=== PATIENT | male | born 1970 | race Two or more races ===

== ENCOUNTER 2016-08-14 21:24 | Inpatient (IN) | payer OTHER ==
--- NOTE | ~2016-08-14 | CR72 ---
[facility] A Service of [facility] RADIOLOGY TEXT RESULTS PATIENT: PRERNA REED LOCATION: CEDOF [address]-05 : [birth year] UNIT #: [id number] AGE: [address]: Venus Smith MD SEX: M ORDER DR: [id number] [facility] [address] [facility]. [place], [place] [address] [id number] MR#: [id number] Acc #: [id number] NAME: PRERNA REED : 1970 SEX: M STUDY DATE/TIME: 08/14/2016 21:46 UNIT: [facility] ROOM: STUDY DESCRIPTION: CR Chest Single View Portable Attending Physician: Luciano Hart M.D. Ordering Physician: Luciano Hart M.D. Primary Care Physician: Primary Care Physician No MEDICAL IMAGING REPORT This report is preliminary unless electronic signature is present EXAM Portable chest HISTORY Syncope, seizure and headache today. Comparison study 03/14/2015. FINDINGS A portable view of the chest was obtained. The heart size and vascularity are normal, the lungs are clear and the bones are unremarkable. IMPRESSION No active disease. Dictated by... Eleazar Carranza M.D. THIS IS AN ELECTRONICALLY VERIFIED REPORT Eleazar Carranza M.D. at 08/15/2016 5:54 AM KEO/abhijeet TD: 08/15/2016 01:37 JOB #: [id number] MEDICAL IMAGING REPORT Page 1 of 1 COPY
--- NOTE | ~2016-08-14 | CO ---
Unit #: [id number] #: [id number] Patient: PRERNA REED [id number] [place], [place] [address] [id number] I MR#: [id number] NAME: PRERNA REED [facility] Age: 46 Sex: M Admission Date: 08/15/2016 : 1970 Attending Physician: Ratna Aguilar M.D. Primary Care Physician: No Primary Care Physician Consultation Date: 08/15/2016 CONSULTATION REPORT HISTORY OF PRESENT ILLNESS Mr. Gutierrez is a 46-year-old white male admitted to the intensive care unit at [facility]. We were asked to see him. No history is obtainable from the patient as he has been sedated and is undergoing alcohol withdrawal symptoms. According to the electronic medical record, he drinks a large bottle of vodka on a daily basis. His last drink was three days prior to admission. Apparently he ran out of money and was unable to buy alcohol. The day prior to admission he had two witnessed seizures at home and was brought to the emergency department, but apparently he ran back home. He had two further seizures and was brought to the emergency department late in the evening the night before admission. He was given 2 mg of Ativan and 1 g of Keppra and bolused with a liter of saline. He was given 50 mg of Librium. At that time he was confused, but less tremulous. Apparently in the emergency room his ex- was with him. He does have some history of seizure activity versus alcohol withdrawal seizures. EEG performed this year was read as essentially normal. He has been prescribed Keppra, but does not take it. PAST MEDICAL HISTORY 1. Alcohol withdrawal. 2. Seizures. 3. History of lower GI bleeding. Colonoscopy normal except for medium sized hemorrhoids which were banded. SOCIAL HISTORY The patient lives with his ex- and family. Drinks a fifth of vodka on a daily basis. No smoking. No illicit drugs. FAMILY HISTORY Apparently negative for seizures. ALLERGIES No known drug allergies. HOME MEDICATIONS None. REVIEW OF SYSTEMS Not possible. The patient is sedated. PHYSICAL EXAMINATION GENERAL: male, sedated. VITALS: Blood pressure 153/107, pulse 111, respiratory rate 18, afebrile. Unit #: [id number] #: [id number] Patient: PRERNA REED HEENT: Normocephalic, atraumatic. Pupils round and reactive. Somewhat mildly icteric. NECK: Supple. Trachea midline. No cervical or supraclavicular lymphadenopathy. LUNGS: Relatively clear bilaterally. HEART: Regular rate and rhythm. Could not appreciate murmur, rub or gallop. ABDOMEN: Nontender. Bowel sounds present. No hepatosplenomegaly. EXTREMITIES: Without clubbing, cyanosis or edema. NEUROLOGIC: Sedated. Does seem to move all extremities when stimulated. SKIN: Warm and dry. DIAGNOSTIC STUDIES IMAGING: Chest x-ray no acute infiltrate, mass or congestion. CT scan no acute abnormality. LABORATORY: BMP reviewed. Potassium 2.7, sodium 133, bilirubin 2.3, magnesium 1.7, AST 78. Coags normal. White blood cell count 8,400, hematocrit 30.5, platelets 85,000. Chem tox positive for tricyclic antidepressants. Urinalysis trace leukocyte esterase, 2+ protein, 5-10 red blood cells, 2-5 white blood cells. ASSESSMENT 1. Alcohol withdrawal. 2. Seizures versus ETOH withdrawal seizures. 3. Thrombocytopenia. 4. Hypokalemia. 5. Anemia. PLAN CIWA protocol. Multivitamins with thiamine. Further recommendations pending this. Dictated by... Yoel Harris M.D. NATALY/raffi TD: 08/15/2016 14:55 JOB #: [id number] CONSULTATION REPORT Page 1 of 1 X Yoel Harris MD X CONSULTATION REPORT
--- NOTE | ~2016-08-14 | DS ---
Unit #: [id number] #: [id number] Patient: PRERNA GARCIA [id number] [address] [address] [id number] I MR#: [id number] NAME: PRERNA GARCIA ROOM: [facility] Age: 46 Sex: M Admission Date: 08/15/2016 : 1970 Discharge Date: 08/18/2016 Attending Physician: Ratna Aguilar M.D. DISCHARGE SUMMARY PRINCIPAL DIAGNOSES 1. Acute delirium tremens. 2. Acute hypoxic respiratory failure secondary to #1, now status post extubation. 3. Alcohol withdrawal seizure. 4. Hyponatremia, resolved. 5. Hypokalemia, resolved. 6. Iron deficiency anemia. 7. Alcohol-induced thrombocytopenia with discharge platelet count of 140,000. 8. Questionable history of epilepsy noncompliant with antiepileptic medication. ANALYSIS TESTER Dr. Harris, Pulmonology. PROCEDURES 1. CT of the head without contrast on August 14, 2016, with ethmoid and right maxillary sinus disease. CT of the brain otherwise normal. 2. Multiple followup chest x-rays without evidence of pneumonia, both pre, intra, and post-extubation. CLINICAL HISTORY AND HOSPITAL COURSE Mr. Garcia is a 46-year-old male, Yi speaking only, who presented to the emergency department after several seizures three days after stopping alcohol. Please refer to History and Physical for further details. Patient was given Keppra, Ativan, and normal saline, and admitted to telemetry floor. The following morning, the patient was in significant alcohol withdrawal, i.e., he was tremulous, tachycardic, delirious, and trying to climb out the window. He was given several doses of Ativan without improvement and subsequently transferred to the ICU at which point he was given Haldol, Geodon, and Ativan simply to calm him down and subsequently required intubation. Dr. Harris was consulted. Patient was maintained on Precedex and subsequently extubated on August 17. Following extubation, patient has done well on low-dose Librium. He is having no signs of withdrawal currently, and he has not had any further seizures. He is now eating and has been walking in the room. All laboratory work has been normal. I am going to have him evaluated for outpatient treatment by [facility], and after that, he can be discharged home. I did stress to the patient via meat and seafood manager his need for alcohol cessation. Unit #: [id number] #: [id number] Patient: PRERNA GARCIA The patient does have a questionable history of epilepsy, and I am going to send him home on Keppra. However, I have a strong suspicion his seizures are primarily alcohol withdrawal and this particular hospitalization I do feel is alcohol withdrawal. DISCHARGE CONDITION Stable. DISCHARGE STATUS Discharge to home. DISCHARGE MEDICATIONS 1. Keppra 500 mg p.o. b.i.d., 2 month prescription given. 2. Librium 25 mg 1 tablet twice daily for 1 day, then 1 tablet daily, then discontinue. DISCHARGE INSTRUCTIONS 1. Patient is instructed to follow a regular diet. 2. He can increase his activity as tolerated. 3. He is to refrain from any further alcohol use. FOLLOWUP Patient will follow up with his primary care physician in one week. Dictated by... Ratna Aguilar M.D. ANA/delmar TD: 08/20/2016 14:55 JOB #: [id number] DISCHARGE SUMMARY Page 1 of 1 X Ratna Aguilar MD X DISCHARGE SUMMARY
--- NOTE | ~2016-08-14 | A ---
[facility] Nutrition Therapy DATE: 08/16/16 Patient: PRERNA ANGEL JULY Physician: MYRNA Address: [address] [place] [address] Room/Bed: [address], Zip: [place] [address] Admit Date: 08/15/16 Date of : [birth year] Height: Weight: 168 76.5 NUTRITIONAL ASSESSMENT: REASON: PT INTUBATED IN ICU PT IS 46 Y.O. MALE ADMITTED FOR SEIZURES, ETOH WITHDRAWAL PMH: CHRONIC ETOH ABUSE/WITHDRAWALS, SEIZURES, HX OF LOWER GI BLEED Anthropometrics: 6'4", WT: 170# (BEDSIDE) (77 KG), BMI: 20.7, 84%IBW Labs: BUN: 8, AST: 80, K+:3.1, NA+:134 Meds: FENTANYL, VERSED, D5%, NACL, MVI, THIAMINE, KCL, PEPCID, LAXATIVE, ZOFRAN I/O & Bowel function: 3130/1175 Skin Integrity: NO KNOWN SKIN ISSUES Estimated Nutrition Needs: 2223-8639 KCAL (25-30 KCAL/KG BW) 92-115 G PRO (1.2-1.5 G PRO/KG BW) FLUIDS CONSISTENT W/KCAL NEEDS OR MANAGE PER MD Assessment: CHART REVIEWED AND EVENTS NOTED. PT CURRENTLY INTUBATED AND SEDATED AT TIME OF VISIT. NO FAMILY IN ROOM AT TIME OF VISIT. OF NOTE, PT (NON-TUVALUAN SPEAKING). PER RN AND CHART, PT DRINKS A BOTTLE OF VODKA DAILY AT HOME. PER Wagon, WEIGHT GAIN SINCE APRIL 2016 NOTED. NO CURRENT PLANS IN PLACE FOR ALTERNATIVE NUTRITION SUPPORT AT THIS TIME. RD TO FOLLOW. SEE RECOMMENDATIONS BELOW. OF NOTE, PT WAS RECEIVING IRYO-ZE-YLBC DIGEST PRIOR TO INTUBATION. Dx: INADEQUATE ORAL INTAKE R/T DX, CURRENT CLINICAL CONDITION AEB PT NPO STATUS, PT INTUBATED AND SEDATED. Intervention: 1. NPO Monitoring, Evaluation and Goals: 1. ENTERAL NUTRITION; PROVIDE ~80-100% ESTIMATED NEEDS AT GOAL X 24 HOURS 2. ORAL INTAKE; ADVANCE DIET PER SUPERVISOR FINISHING W/NO C/O N/V/D (PO>50%) 3. LABS; ELECTROLYTES 4. WEIGHTS; PROMOTE WEIGHT MAINTENANCE MONITOR: -WEIGHTS [facility] Nutrition Therapy DATE: 08/16/16 Patient: PRERNA MCDOWELL Physician: MYRNA Address: [address] [place] [address] Room/Bed: [address], Zip: [place] [address] Admit Date: 08/15/16 Date of : [birth year] Height: Weight: 168 76.5 -PLANS FOR SUPPORT -LABS -EXTUBATION Recommendations: 1. REPLACE ELECTROLYTES-K+ LOW 2. ONCE MEDICALLY FEASIBLE AND PT EXTUBATED, ADVANCE DIET PREVIOUS TO OGIM-FS-[id number] DIGEST (SUPERVISOR FINISHING) 3. IF PT REMAINS INTUBATED FOR >24 HOURS, RECOMMEND TO PLACE DHT AND BEGIN ALTERNATIVE NUTRITION SUPPORT OF JEVITY 1.5 @ 20 ML/HR, ADVANCE 10 ML q 4 HOURS TO GOAL RATE OF 65 ML/HR -PROVIDES 2340 KCAL, 99 G PRO, 1186 ML FREE H20 ADD FREE H20 FLUSHES PER MD PT AT RISK FOR RE-FEEDING SYNDROME. PLEASE BEGIN EN AT SLOW RATE RD WILL F/U PER PROTOCOL PT IS SEVERELY COMPROMISED Respectfully, DYLAN ENRIQUEZ MS, RD, LD [facility] cc: client file
--- NOTE | ~2016-08-14 | FU ---
[facility] Nutrition Therapy DATE: 08/18/16 Patient: PRERNA MCDOWELL Physician: MYRNA Address: [address] [place] [address] Room/Bed: [address], Zip: [place] [address] Admit Date: 08/15/16 Date of : [birth year] Height: Weight: 171 78 NUTRITION MONITORING/FOLLOW-UP: Reason: PT SEEN FOR FOLLOW-UP DX: ETOH WITHDRAWAL AND SEIZURES Anthropometrics: 6'4", WT: 171# (78 KG), BMI: 20.8 -WEIGHTS HAVE BEEN STABLE SINCE ADMIT Labs: BUN: 5, CREAT: 0.5, AST: 80, K+:3.4 Meds: PEPCID, THIAMINE, KCL, PEPCID, ZOFRAN, LAXATIVE I&O's: 1804/5 Skin: NO KNOWN SKIN ISSUES EDEMA: PEDAL/ANKLE TRACE EDEMA; BLISTER ON TONGUE PER RN Estimated Nutrition Needs: 8244-6115 KCAL 92-115 G PRO Assessment: CHART REVIEWED AND EVENTS NOTED. PT SEEN FOR FOLLOW-UP. PT EXTUBATED AND COMPONENT ASSEMBLER SUPERVISOR FOLLOWING PT DEEMING PT APPROPRIATE FOR DIET ADVNANCEMENT TO MECHANICAL SOFT + NDD2 + NECTAR THICK LIQUID. RD SPOKE TO PT VIA PHONE DATA REVIEW SPECIALIST. PT REPORTS POOR/FAIR PO INTAKE 2' DECREASED APPETITE, NO C/O N/V/D. THIS RD ENCOURAGED SLOW GRADUAL PO INTAKE + SUPPLEMENT INTAKE, PT AGREED TO ENSURE PUDDING BID. PT REPORTED NO DIET QUESTIONS AT THIS TIME. PLANS IN PLACE FOR PT TO TRANSFER TO TELEMETRY. Dx: INADEQUATE ORAL INTAKE R/T DX, CURRENT CLINICAL CONDITION AEB NPO STATUS, PT INTUBATED AND SEDATED-RESOLVED. NEW DX: DECREASED NUTRIENT INTAKE R/T DECREASED APPETITE AEB PT REPORT ABOVE. Intervention: 1. COMPONENT ASSEMBLER SUPERVISOR DIET: MECHANICAL SOFT + NDD2 + NECTAR THICK LIQUID 2. ENSURE PUDDING BID Monitoring, Evaluation and Goals: GOALS NOT MET 1. ORAL INTAKE; ADVANCE DIET AND CONSUME >50% OF MEALS AND SUPPLEMENTS W/NO C/O N/V/D 2. WEIGHTS; PROMOTE WEIGHT MAINTENANCE 3. LABS; WNL: K+ MONITOR: -PO INTAKE/APPETITE [facility] Nutrition Therapy DATE: 08/18/16 Patient: PRERNA MCDOWELL Physician: MYRNA Address: [address] [place] [address] Room/Bed: [address], Zip: [place] [address] Admit Date: 08/15/16 Date of : [birth year] Height: Weight: 171 78 -WEIGHTS -SUPPLEMENT INTAKE Recommendations: 1. ORDER [place] ENSURE PUDDING BID W/MEALS 2. APPRECIATE FAMILY AND STAFF TO ENCOURAGE ADEQUATE KCAL AND PROTEIN INTAKE RD WILL F/U PER PROTOCOL PT IS MILD/MODERATELY COMPROMISED Respectfully, DYLAN ENRIQUEZ MS, RD, LD Food and Nutritional Services [facility] cc: client file
--- NOTE | ~2016-08-14 | CR72 ---
[facility] A Service of [facility] RADIOLOGY TEXT RESULTS PATIENT: PRERNA REED LOCATION: [address] : [birth year] UNIT #: [id number] AGE: [address]: Ratna Aguilar MD SEX: M ORDER DR: [id number] [facility] [place] [facility]. [place], [place] [address] [id number] I MR#: [id number] Acc #: [id number] NAME: PRERNA REED : 1970 SEX: M STUDY DATE/TIME: 08/15/2016 18:44 UNIT: [facility] ROOM: [facility] STUDY DESCRIPTION: CR Chest Single View Portable Attending Physician: Ratna Aguilar M.D. Referring Physician: Uri Maciel M.D. Ordering Physician: Uri Maciel M.D. Primary Care Physician: No Primary Care Physician MEDICAL IMAGING REPORT This report is preliminary unless electronic signature is present EXAM Frontal chest. DATE OF EXAM 08/15/2016 INDICATIONS 46-year-old male for ET tube placement today. REPORT Frontal chest. COMPARISON Compared to 08/14/2016. FINDINGS ET tube tip is in good position approximately 5.5 cm above the level of the nolan. Aorta is mildly tortuous and ectatic. Cardiac silhouette otherwise unremarkable and stable. The vascularity is normal. Lung volumes are low but the lungs are otherwise clear. No pneumothorax. IMPRESSION 1. ET tube tip in good position 5.5 cm above the nolan. No pneumothorax. 2. Low lung volumes, otherwise, negative frontal chest. Dictated by... Nacho Sue M.D. THIS IS AN ELECTRONICALLY VERIFIED REPORT Nacho Sue M.D. at 08/16/2016 5:11 PM LUPE/michelle [facility] A Service of [facility] & [facility] RADIOLOGY TEXT RESULTS PATIENT: PRERNA REED LOCATION: [address] : [birth year] UNIT #: [id number] AGE: [address]: Ratna Aguilar MD SEX: M ORDER DR: TD: 08/15/2016 23:38 JOB #: [id number] MEDICAL IMAGING REPORT Page 1 of 1 COPY
--- NOTE | ~2016-08-14 | CT71 ---
[facility] A Service of [facility] RADIOLOGY TEXT RESULTS PATIENT: PRERNA REED LOCATION: [facility] : [birth year] UNIT #: [id number] AGE: [address]: Venus Smith MD SEX: M ORDER DR: [id number] [facility]. [place], [place] [address] [id number] I MR#: [id number] Acc #: [id number] NAME: PRERNA REED : 1970 SEX: M STUDY DATE/TIME: 08/14/2016 23:44 UNIT: [facility] ROOM: [address] STUDY DESCRIPTION: CT Head Wo Contrast Attending Physician: Venus Smith M.D. Ordering Physician: Luciano Hart M.D. Primary Care Physician: Primary Care Physician No MEDICAL IMAGING REPORT This report is preliminary unless electronic signature is present EXAM CT scan of the head without contrast. INDICATION Headache, seizure x3 today. COMPARISON 02/18/[address] exam was performed with one or more of the following radiation dose reduction techniques: automatic exposure control, adjustment of mA and/or kV according to patient size, and iterative reconstruction. FINDINGS Unenhanced images were obtained through the brain. The ventricles and subarachnoid spaces are normal. There are no masses or extraaxial fluid collections or hemorrhage. The right maxillary sinus and ethmoid sinuses show some mucosal thickening. IMPRESSION 1. Ethmoid and right maxillary sinus disease. 2. Otherwise normal CT scan of the brain without contrast. Dictated by... Eleazar Carranza M.D. THIS IS AN ELECTRONICALLY VERIFIED REPORT Eleazar Carranza M.D. at 08/15/2016 5:54 AM KEO/braxton [facility] A Service [facility] RADIOLOGY TEXT RESULTS PATIENT: PRERNA REED LOCATION: [facility] : [birth year] UNIT #: [id number] AGE: [address]: Venus Smith MD SEX: M ORDER DR: TD: 08/15/2016 03:23 JOB #: [id number] MEDICAL IMAGING REPORT Page 1 of 1 COPY
--- NOTE | ~2016-08-14 | CR72 ---
[facility] A Service of [facility] RADIOLOGY TEXT RESULTS PATIENT: PRERNA REED LOCATION: [address] : [birth year] UNIT #: [id number] AGE: [address]: Ratna Aguilar MD SEX: M ORDER DR: [id number] [facility] [address] [place], [place] [address] [id number] I MR#: [id number] Acc #: [id number] NAME: PRERNA REED : 1970 SEX: M STUDY DATE/TIME: 08/17/2016 4:27 UNIT: [facility] ROOM: [facility] STUDY DESCRIPTION: CR Chest Single View Portable Attending Physician: Ratna Aguilar M.D. Ordering Physician: Yoel Harris M.D. Primary Care Physician: Primary Care Physician No MEDICAL IMAGING REPORT This report is preliminary unless electronic signature is present EXAM Portable chest INDICATION Follow up endotracheal tube and respirator failure. FINDINGS Today's portable view of the chest shows no change from yesterday's study. The lungs are clear. The endotracheal tube remains in good position. The heart size is normal. Dictated by... Eleazar Carrnaza M.D. THIS IS AN ELECTRONICALLY VERIFIED REPORT Eleazar Carranza M.D. at 08/17/2016 2:14 PM KEO/bernice TD: 08/17/2016 06:10 JOB #: [id number] MEDICAL IMAGING REPORT Page 1 of 1 COPY
--- NOTE | ~2016-08-14 | HP ---
Unit #: [id number] #: [id number] Patient: PRERNA REED [id number] [address] [id number] I MR#: [id number] NAME: PRERNA REED ROOM: [address] Age: 46 Sex: M Admission Date: 08/15/2016 : 1970 Attending Physician: Venus Smith M.D. Primary Care Physician: No Primary Care Physician HISTORY AND PHYSICAL CHIEF COMPLAINT Alcohol withdrawal and seizures. HISTORY This 46-year-old male with history of alcohol abuse and possible epilepsy versus seizures related to withdrawal, is admitted for multiple seizures. The patient drinks a large bottle of vodka on a daily basis. His last drink was three days ago. Apparently he ran out of money, was unable to buy the alcohol. Yesterday, had two witnessed seizures at home, and was brought to the emergency department but ran back home. He had two further seizures and was brought to this emergency department late last evening. The patient was given 2 mg of IV Ativan, 1 g of Keppra, and bolused with a liter of saline. He was also given Tylenol and 50 mg of Librium. At this time, he is mildly confused but less tremulous. His ex- is by bedside who supplements history. There is some question that the patient has epilepsy versus alcohol withdrawal seizures. An EEG performed this year was essentially normal. However, the patient has been prescribed Keppra but does not take this medicine as an outpatient. PAST MEDICAL HISTORY 1. Alcohol withdrawal. 2. Seizures. These are related with withdrawal versus epilepsy. Again, EEG done this year was negative. 3. Admission 04/2016 for lower GI bleeding. Colonoscopy was normal except for medium size hemorrhoids which were banded. During that hospitalization, the patient had a seizure and was seen by neurology. ALLERGIES No known drug allergies. HOME MEDICATIONS None. FAMILY HISTORY Negative for seizures. SOCIAL HISTORY The patient lives with his ex- and family. He drinks a large bottle of vodka on a daily basis. Does not smoke, and does not use drugs. REVIEW OF SYSTEMS Unit #: [id number] #: [id number] Patient: PRERNA REED Difficult to obtain as patient, himself, is a bit confused. The history was obtained via a movie stunt performer and I spoke with both the as well as the ex-. PHYSICAL EXAMINATION GENERAL APPEARANCE: Mildly confused 46-year-old, thin male, currently in no acute distress. VITAL SIGNS: Temperature 97.3, pulse 98, respirations 17, blood pressure 156/106. O2 saturation is 99% on room air. HEENT: Eyes PERRLA. Extraocular muscles are intact. Pharynx reveals hematoma under the tongue bilaterally. NECK: Supple without adenopathy or thyromegaly. CHEST: Clear. CARDIAC: Normal S1 and S2 without murmur. ABDOMEN: Bowel sounds are present. No hepatosplenomegaly, tenderness or masses. EXTREMITIES: Without clubbing, cyanosis or edema. Pedal pulses are present. NEUROLOGIC EXAM: The patient is awake, alert. He is mildly confused. His cranial nerves are intact. He is mildly tremulous. DIAGNOSTIC STUDIES LABORATORY: Admission labs - hematocrit is 33.3 which is improved. MCV is 78, normal white count. Platelet count is 97, has been low in the past. SMA-12 - glucose 130, sodium 129, potassium 3.1, chloride is 97, bilirubin is 2.6, has been elevated in the past. AST is 79. Urine - positive leukocyte esterase, positive bile, 5-10 red cells, no white cells. IMAGING: Head CT - sinus disease. Chest x-ray - no acute disease. ASSESSMENT 1. Alcohol withdrawal and seizures. 2. Possible history of epilepsy versus withdrawal seizures for which the patient is noncompliant with Keppra. 3. Alcohol abuse with associated liver disease. 4. Hypokalemia and hyponatremia related to alcohol abuse. 5. Microcytic anemia, improved. 6. Thrombocytopenia secondary to alcohol abuse. PLANS 1. Benzos and vitamins. 2. Restart Keppra. 3. Urine tox screen. This will, however, be positive for benzos that the patient received in the ER. 4. Replace potassium and check magnesium. 5. IV fluids and supportive treatment. Dictated by Venus Smith M.D. Unit #: [id number] #: [id number] Patient: PRERNA REED AML/df TD: 08/15/2016 05:32 JOB #: [id number] HISTORY AND PHYSICAL Page 1 of 1 X Venus Smith MD HISTORY AND PHYSICAL
--- NOTE | ~2016-08-14 | CR72 ---
[facility] A Service of [facility] RADIOLOGY TEXT RESULTS PATIENT: PRERNA REED LOCATION: [address] : [birth year] UNIT #: [id number] AGE: [address]: Ratna Aguilar MD SEX: M ORDER DR: [id number] [facility] [address] [place], [place] [address] [id number] I MR#: [id number] Acc #: [id number] NAME: PRERNA REED : 1970 SEX: M STUDY DATE/TIME: 08/16/2016 4:28 UNIT: [facility] ROOM: [facility] STUDY DESCRIPTION: CR Chest Single View Portable Attending Physician: Ratna Aguilar M.D. Ordering Physician: Daniel Harris Primary Care Physician: Primary Care Physician No MEDICAL IMAGING REPORT This report is preliminary unless electronic signature is present EXAM Portable chest. HISTORY Follow up endotracheal tube. Seizure. FINDINGS This portable view of the chest is unchanged from yesterday's study. The endotracheal tube is in good position. The lungs are clear and the heart size is normal. Dictated by... Eleazar Carranza M.D. THIS IS AN ELECTRONICALLY VERIFIED REPORT Eleazar Carranza M.D. at 08/16/2016 2:21 PM Autumn TD: 08/16/2016 06:56 JOB #: [id number] MEDICAL IMAGING REPORT Page 1 of 1 COPY
[~2016-08-14 21:24] MED LIST: DULCOLAX5 M1 PO; HYDROCODONE-APA1 T55 PO; KEPPRA500 M2 PO
[2016-08-14 22:45] LABS: BASOPHIL% 0.2 % (0-2.5); HEMATOCRIT 33.3 % (38.0-50.0); HEMOGLOBIN 10.6 gm/dL (13.0-16.0); LYMPHOCYTE# 0.7 X10e3 (1.0-3.5); LYMPHOCYTE% 7.4 % (17.0-45.0); MEAN CORPUSCULAR HEMOGLOBIN 24.8 PG (28-34); MEAN CORPUSCULAR HGB CONC 31.8 g/dL (30-36); MONOCYTE# 1.1 X10e3 (0-1.0); MONOCYTE% 12.4 % (3.0-12.0); NEUTROPHIL# 7.3 X10e3 (1.5-7.1); RED BLOOD COUNT 4.27 X10e (3.90-5.60); RED CELL DISTRIBUTION WIDTH 23.3 % (11.0-15.5); WHITE BLOOD COUNT 9.2 X10e3 (4.0-10.5)
[2016-08-14 23:04] LABS: PLATELET COUNT 97 X10e3 (140-420)
[2016-08-14 23:05] LABS: DIFF IND YES
[2016-08-14 23:07] LABS: HYPOCHROMIA SL; PLATELET ESTIMATE DECREASED (NORMAL)
[2016-08-14 23:09] LABS: ALBUMIN SERUM 4.8 g/dL (3.5-5.0); BILIRUBIN, DIRECT 0.5 mg/dL (0.0-0.2); BILIRUBIN,INDIRECT 2.1 mg/dL (0.0-0.9); BILIRUBIN,TOTAL 2.6 mg/dL (0.2-2.0); BUN/CREATININE RATIO 18.33; CREATININE SERUM 0.6 mg/dL (0.6-1.4); GLOM FILT RATE Estimated 118.9 mL/min (>60); POTASSIUM 3.1 mmol/L (3.5-5.1); PROTEIN TOTAL SERUM 8.3 g/dL (6.0-8.3)
[2016-08-15 00:01] LABS: URINE SOURCE CLEAN CATCH
[2016-08-15 00:05] LABS: URINE APPEARANCE CLEAR; URINE BLOOD NEG (NEG); URINE COLOR DK YELLOW; URINE GLUCOSE NEG (NEG); URINE KETONE 2+ (NEG); URINE LEUKOCYTE ESTERASE TRACE (NEG); URINE NITRATE NEG (NEG); URINE PH 8.5 (5-8); URINE PROTEIN 2+ (NEG); URINE SPECIFIC GRAVITY 1.022 (1.003-1.035)
[2016-08-15 00:07] LABS: URINE BACTERIA AUWI NEG (NEGATIVE); URINE SQUAMOUS EPITHELIAL CELL OCC /[HPF]
[2016-08-15 00:10] LABS: CULTURE INDICATED? NO
[2016-08-15 00:13] LABS: URINE BILIRUBIN POS (NEG)
[2016-08-15 04:38] LABS: BASOPHIL% 0.4 % (0-2.5); DIFF IND NO; HEMATOCRIT 30.5 % (38.0-50.0); HEMOGLOBIN 9.8 gm/dL (13.0-16.0); LYMPHOCYTE# 1.4 X10e3 (1.0-3.5); LYMPHOCYTE% 16.8 % (17.0-45.0); MEAN CELL VOLUME 78.9 FL (83-96); MEAN CORPUSCULAR HEMOGLOBIN 25.2 PG (28-34); MEAN PLATELET VOLUME 10.5 FL (6.5-11.5); MONOCYTE# 1.1 X10e3 (0-1.0); MONOCYTE% 13.4 % (3.0-12.0); NEUTROPHIL# 5.9 X10e3 (1.5-7.1); NEUTROPHIL% 69.4 % (40-75); PLATELET COUNT 85 X10e3 (140-420); RED BLOOD COUNT 3.87 X10e (3.90-5.60); RED CELL DISTRIBUTION WIDTH 23.5 % (11.0-15.5); WHITE BLOOD COUNT 8.4 X10e3 (4.0-10.5)
[2016-08-15 04:46] LABS: INR 1.1; PARTIAL THROMBOPLASTIN TIME 25.3 SECONDS (23.5-31.3); PROTHROMBIN TIME (PATIENT) 12.1 SECONDS (9.6-11.5)
[2016-08-15 04:50] LABS: ALBUMIN SERUM 4.7 g/dL (3.5-5.0); BILIRUBIN,TOTAL 2.3 mg/dL (0.2-2.0); CALCIUM SERUM 9.6 mg/dL (8.4-10.2); CREATININE SERUM 0.6 mg/dL (0.6-1.4); GLOM FILT RATE Estimated 118.9 mL/min (>60); MAGNESIUM 1.7 mg/dL (1.6-3.0); PROTEIN TOTAL SERUM 7.9 g/dL (6.0-8.3)
[2016-08-15 04:52] LABS: POTASSIUM 2.7 mmol/L (3.5-5.1)
[2016-08-15 08:33] LABS: AMPHETAMINE NEG (NEG); BARBITURATES NEG (NEG); BENZODIAZEPINES NEG (NEG); COCAINE NEG (NEG); MARIJUANA NEG (NEG); OPIATES NEG (NEG); TRICYCLIC ANTIDEPRESSANTS POS (NEG); U METHADONE NEG (NEG)
[2016-08-15 17:28] LABS: BUN/CREATININE RATIO 11.66; CREATININE SERUM 0.6 mg/dL (0.6-1.4); GLOM FILT RATE Estimated 118.9 mL/min (>60); MAGNESIUM 1.9 mg/dL (1.6-3.0)
[2016-08-15 17:31] LABS: POTASSIUM 2.8 mmol/L (3.5-5.1)
[2016-08-15 19:30] LABS: ARTERIAL BLD GAS O2 SATURATION 97.7 % (90.0-100.0); ARTERIAL BLOOD GAS CARBOXY HB 1.3 %sat (0.0-9.0); ARTERIAL BLOOD GAS HCO3 24.8 mmol/L; ARTERIAL BLOOD GAS MET HB 1.3 %sat (0.0-2.0); ARTERIAL BLOOD GAS PCO2 35.7 mmHg (35.0-45.0); ARTERIAL BLOOD GAS pH 7.449 (7.350-7.450)
[2016-08-15 19:31] LABS: ARTERIAL BLOOD GAS ALLEN TEST NORMAL; ARTERIAL BLOOD GAS ART SITE RIGHT RADIAL; ARTERIAL BLOOD GAS VENT MODE AC; ARTERIAL DRAW? YES
[2016-08-16 04:22] LABS: ARTERIAL BLD GAS O2 SATURATION 97.4 % (90.0-100.0); ARTERIAL BLOOD GAS CARBOXY HB 1.2 %sat (0.0-9.0); ARTERIAL BLOOD GAS HCO3 24.6 mmol/L; ARTERIAL BLOOD GAS MET HB 1.2 %sat (0.0-2.0); ARTERIAL BLOOD GAS PCO2 43.8 mmHg (35.0-45.0); ARTERIAL BLOOD GAS pH 7.357 (7.350-7.450)
[2016-08-16 04:28] LABS: ARTERIAL BLOOD GAS ALLEN TEST NORMAL; ARTERIAL BLOOD GAS ART SITE RIGHT RADIAL; ARTERIAL BLOOD GAS DELIVERY VENT; ARTERIAL BLOOD GAS VENT MODE AC; ARTERIAL DRAW? YES
[2016-08-16 06:03] LABS: INR 1.1; PARTIAL THROMBOPLASTIN TIME 27.3 SECONDS (23.5-31.3); PROTHROMBIN TIME (PATIENT) 11.9 SECONDS (9.6-11.5)
[2016-08-16 06:36] LABS: BILIRUBIN,TOTAL 1.8 mg/dL (0.2-2.0); BUN/CREATININE RATIO 13.33; CALCIUM SERUM 8.5 mg/dL (8.4-10.2); CREATININE SERUM 0.6 mg/dL (0.6-1.4); GLOM FILT RATE Estimated 118.9 mL/min (>60); MAGNESIUM 1.6 mg/dL (1.6-3.0); PHOSPHOROUS 2.8 mg/dL (2.5-4.6); POTASSIUM 3.1 mmol/L (3.5-5.1); PROTEIN TOTAL SERUM 6.7 g/dL (6.0-8.3)
[2016-08-16 08:09] LABS: ARTERIAL BLOOD GAS pH 7.387 (7.350-7.450)
[2016-08-16 08:10] LABS: ARTERIAL BLD GAS O2 SATURATION 86.2 % (90.0-100.0); ARTERIAL BLOOD GAS ALLEN TEST NORMAL; ARTERIAL BLOOD GAS ART SITE LEFT RADIAL; ARTERIAL BLOOD GAS CARBOXY HB 1.3 %sat (0.0-9.0); ARTERIAL BLOOD GAS HCO3 30.5 mmol/L; ARTERIAL BLOOD GAS MET HB 0.8 %sat (0.0-2.0); ARTERIAL BLOOD GAS PCO2 50.8 mmHg (35.0-45.0); ARTERIAL DRAW? YES
[2016-08-16 08:38] LABS: BASOPHIL% 0.1 % (0-2.5); EOSINOPHIL# 0.1 X10e3 (0-0.7); EOSINOPHIL% 0.5 % (0.0-7.0); HEMATOCRIT 30.9 % (38.0-50.0); HEMOGLOBIN 9.5 gm/dL (13.0-16.0); LYMPHOCYTE# 0.9 X10e3 (1.0-3.5); LYMPHOCYTE% 8.8 % (17.0-45.0); MEAN CORPUSCULAR HEMOGLOBIN 25.3 PG (28-34); MEAN CORPUSCULAR HGB CONC 30.9 g/dL (30-36); MONOCYTE# 0.9 X10e3 (0-1.0); MONOCYTE% 8.9 % (3.0-12.0); NEUTROPHIL# 8.5 X10e3 (1.5-7.1); NEUTROPHIL% 81.7 % (40-75); PLATELET COUNT 80 X10e3 (140-420); RED BLOOD COUNT 3.76 X10e (3.90-5.60); WHITE BLOOD COUNT 10.4 X10e3 (4.0-10.5)
[2016-08-16 08:40] LABS: MEAN CELL VOLUME 82.1 FL (83-96)
[2016-08-16 08:43] LABS: DIFF IND NO
[2016-08-17 04:18] LABS: HEMATOCRIT 31.9 % (38.0-50.0); HEMOGLOBIN 9.7 gm/dL (13.0-16.0); MEAN CELL VOLUME 81.6 FL (83-96); MEAN CORPUSCULAR HEMOGLOBIN 24.9 PG (28-34); MEAN CORPUSCULAR HGB CONC 30.5 g/dL (30-36); MEAN PLATELET VOLUME 10.4 FL (6.5-11.5); RED BLOOD COUNT 3.9 X10e (3.90-5.60); RED CELL DISTRIBUTION WIDTH 23.3 % (11.0-15.5); WHITE BLOOD COUNT 17.3 X10e3 (4.0-10.5)
[2016-08-17 06:39] LABS: BUN/CREATININE RATIO 13.33; CALCIUM SERUM 8.9 mg/dL (8.4-10.2); CREATININE SERUM 0.6 mg/dL (0.6-1.4); GLOM FILT RATE Estimated 118.9 mL/min (>60); MAGNESIUM 1.9 mg/dL (1.6-3.0); POTASSIUM 3.5 mmol/L (3.5-5.1)
[2016-08-17 09:13] LABS: ARTERIAL BLD GAS O2 SATURATION 98.6 % (90.0-100.0); ARTERIAL BLOOD GAS CARBOXY HB 0.6 %sat (0.0-9.0); ARTERIAL BLOOD GAS HCO3 21.1 mmol/L; ARTERIAL BLOOD GAS MET HB 0.9 %sat (0.0-2.0); ARTERIAL BLOOD GAS PCO2 36.2 mmHg (35.0-45.0); ARTERIAL BLOOD GAS pH 7.374 (7.350-7.450)
[2016-08-17 09:14] LABS: ARTERIAL BLOOD GAS ALLEN TEST NORMAL; ARTERIAL BLOOD GAS ART SITE RIGHT RADIAL; ARTERIAL BLOOD GAS DELIVERY VENT; ARTERIAL BLOOD GAS VENT MODE CPAP; ARTERIAL DRAW? YES
[2016-08-18 06:50] LABS: CALCIUM SERUM 9.2 mg/dL (8.4-10.2); CREATININE SERUM 0.5 mg/dL (0.6-1.4); GLOM FILT RATE Estimated 128.2 mL/min (>60); MAGNESIUM 1.7 mg/dL (1.6-3.0); PHOSPHOROUS 4.2 mg/dL (2.5-4.6); POTASSIUM 3.4 mmol/L (3.5-5.1)
[2016-08-18 07:54] LABS: HEMATOCRIT 27.4 % (38.0-50.0); HEMOGLOBIN 8.8 gm/dL (13.0-16.0); MEAN CELL VOLUME 79.9 FL (83-96); MEAN CORPUSCULAR HEMOGLOBIN 25.7 PG (28-34); MEAN CORPUSCULAR HGB CONC 32.1 g/dL (30-36); MEAN PLATELET VOLUME 10.6 FL (6.5-11.5); RED BLOOD COUNT 3.42 X10e (3.90-5.60); RED CELL DISTRIBUTION WIDTH 23.3 % (11.0-15.5)
[2016-08-18 08:14] LABS: WHITE BLOOD COUNT 7.7 X10e3 (4.0-10.5)
[2016-08-18] MEDS ORDERED: KEPPRA500 M2 PO (17:13)
[2016-08-18] MEDS ORDERED: LIBRIUM25 M1 PO (17:15)
== END 2016-08-18 19:23 | disposition home or self-care (01) | DRG 896 ==
LOC: CED 21:24 → CEDOF 08-15 02:30 → C3A PCU 08-15 07:44 → CICCU2 08-15 10:49
PROVIDERS: Emergency Medicine; Internal Medicine; Nurse Practitioner
PROC: 0BH17EZ Insertion of Endotracheal Airway into Trachea, Via Natural or Artificial Opening (ICD-10-PCS; principal; 2016-08-16)
PROC: 5A1945Z Respiratory Ventilation, 24-96 Consecutive Hours (ICD-10-PCS; 2016-08-16)
PROC: 3E0234Z Introduction of Serum, Toxoid and Vaccine into Muscle, Percutaneous Approach (ICD-10-PCS; 2016-08-18)
DX: F10.231 Alcohol dependence with withdrawal delirium (principal); J96.01 Acute respiratory failure with hypoxia; E87.1 Hypo-osmolality and hyponatremia; E87.6 Hypokalemia; D69.59 Other secondary thrombocytopenia; D50.9 Iron deficiency anemia, unspecified; G40.909 Epilepsy, unspecified, not intractable, without status epilepticus; Z91.14 Patient's other noncompliance with medication regimen; Z23 Encounter for immunization
CPT/HCPCS: 36415; 36600; 70450; 71010; 80048; 80053; 80076; 80307; 81003; 82803; 83735; 84100; 84132; 85025; 85027; 85610; 85730; 90732; 92610; 94002; 94003; 94640; 94760; 94761; 96365; 96375; 97161; 97166; 99291; G0009; J0330; J0515; J1630; J1953; J2060; J2250; J3010; J3411; J3475; J3490